=== PATIENT | female | born 1990 | race Hispanic/Latino ===

== ENCOUNTER 2017-06-06 04:50 | Inpatient (IN) | payer OTHER ==
[2017-06-06 05:33] VITALS: BMI 34.7
[2017-06-06] MEDS ORDERED: Penicillin G Potassium 5 MILL.UNITS VIAL ONE (05:55)
[2017-06-06] MEDS ORDERED: Sodium Chloride 0.9% 100 ML ONE (05:56)
[2017-06-06] MEDS ORDERED: Ondansetron HCl/PF 4 MG/2 ML Vial IVP PRN (05:59)
[2017-06-06] MEDS ORDERED: Promethazine HCl 25 MG/ML VIAL IM PRN (05:59)
[2017-06-06 06:02] LABS: Hematocrit 35.8 % (36.0-47.0); White Blood Cell (WBC) Count 10.8 thou/uL (4.8-10.8)
[2017-06-06] MEDS ORDERED: Penicillin G Potassium 5 MILL.UNITS in Sodium Chloride 0.9% 100 ML IVPB SCH (06:15)
[2017-06-06] MEDS: Lactated Ringer's 1,000 ML IV SCH ×2 (06:35→14:35)
[2017-06-06] MEDS: Penicillin G 2.5 MILL.units 2.5 MILL.UNITS in Premix Bag 1 BAG IVPB SCH ×3 (10:24→18:08)
--- NOTE | 2017-06-06 11:07 | PDOC.LDHP ---
Labor and Delivery H&P Chief complaint: contractions HPI: srom Current gestational age (weeks): 36 Due date: 06/30/17 Dating criteria: last menstrual period Grav: 4 Para: 1 Current complications: none Abnormal US findings: No Current medications: pre- vitamins Previous surgical history: other Allergies/Adverse Reactions: Allergies Allergy/AdvReac Type Severity Reaction Status Date / Time No Known Allergies Allergy Unverified 06/06/17 05:23 Social history: none - Physical Exam General: NAD Heart: RRR Lungs: CTAB Abdomen: NTTP Extremeties: trace edema FHT: category 1, category 2 - Vaginal Exam cm dilated: 4 Effacement: 50% Station: -2 - OB Labs Blood type: O RH: positive HIV: negative RPR: negative HEPSAg: negative 1 hour GCT: positive 3 hour GTT: negative GBS: unknown - Assessment L&D Assessment: premature rupture of membranes - Plan Plan: admit to L&D, labor augmentation if indicated, GBS antibiotic prophylaxis
[2017-06-06] MEDS ORDERED: LR 500 ML/Oxytocin 10 units 500 ML IV SCH (11:15)
[2017-06-06] MEDS ORDERED: Lidocaine 1% (PF) 30 ML VIAL ONE (15:12)
[2017-06-06] MEDS ORDERED: LR / Pitocin 40 units/1000 ml 1,000 ML ONE (15:12)
[2017-06-06] MEDS ORDERED: Bisacodyl 10 MG SUPP PR PRN (15:50)
[2017-06-06] MEDS ORDERED: diphenhydrAMINE HCl 25 MG CAP PO PRN (15:50)
[2017-06-06] MEDS ORDERED: Milk Of Magnesia 30 ML UDCUP PO PRN (15:50)
[2017-06-06] MEDS ORDERED: Preparation H Ointment 28 GM TUBE PR PRN (15:50)
[2017-06-06] MEDS ORDERED: Benzocaine/Menthol 20-0.5% 60 ML CAN TOP PRN (15:50)
[2017-06-06] MEDS ORDERED: Lanolin Ointment 7 GM TUBE TOP PRN (15:50)
[2017-06-06] MEDS ORDERED: Adacel (T-DAP) 0.5 ML VIAL IM ONE (15:50)
--- NOTE | 2017-06-06 15:52 | PDOC.OPDEL ---
OB Operative/Delivery Note Delivery Dr/Surgeon: Isaias Pre-Delivery Diagnosis: active labor Procedure/Post Delivery Dx: spontaneous vaginal delivery Weeks gestation: 36 Anesthesia: local - Findings A Sex: male Weight: 5 lb 6 oz - 5 min: 8 - 10 min: 9 - Additional Findings/Plan Placenta delivered: spontaneous Repaired Obstetrical Laceration: 1st degree Estimated blood loss: 250ml
[2017-06-06] MEDS ORDERED: LR / Pitocin 40 units/1000 ml 1,000 ML IV SCH (16:00)
[2017-06-06] MEDS: Ferrous Sulfate 325 MG TAB PO SCH (18:07)
[2017-06-06] MEDS: traMADol HCl 50 MG TAB PO PRN (18:25)
--- NOTE | 2017-06-07 08:23 | PDOC.PP ---
Post Progress Note Post Day #: 1 PO intake tolerated: yes Flatus: yes Ambulation: yes Vital Signs (12 hours) Temp Pulse Resp BP Pulse Ox 06/07/17 08:00 98.0 F 88 16 118/70 92 L 06/07/17 04:00 98.3 F 77 18 06/07/17 00:00 98.3 F 77 18 06/06/17 21:00 98.5 F 76 18 119/69 Weight Weight 184 lb - Physical Examination General: NAD Cardiovascular: no m/r/g, RRR Respiratory: clear to ausculation bilateral Abdominal: + bowel sounds, lochia, no distention, appropriately TTP Result Diagrams: 06/06/17 05:27 Additional Labs: Post Labs Hep Bs Antigen Non-Reactive S/CO (NonReactive) 06/06/17 05:27 - Assessment/Plan post day 0-1..doing well. d/c in AM
[2017-06-07] MEDS: Ferrous Sulfate 325 MG TAB PO SCH ×2 (08:44→16:55)
[2017-06-07] MEDS: Ibuprofen 800 MG TAB PO SCH ×4 (08:44→21:26)
[2017-06-07] MEDS: Docusate (Surfak) 240 MG CAP PO SCH ×3 (08:44→21:26)
[2017-06-07] MEDS: Prenatal Vitamin 1 TAB PO SCH (08:47)
[2017-06-07] MEDS: traMADol HCl 50 MG TAB PO PRN (10:56)
[2017-06-08] MEDS: Ibuprofen 800 MG TAB PO SCH ×2 (05:27→16:16)
--- NOTE | 2017-06-08 07:49 | PDOC.PP ---
Post Progress Note Post Day #: 2. PO intake tolerated: yes Flatus: yes Ambulation: yes Weight Weight 184 lb - Physical Examination General: NAD Cardiovascular: no m/r/g, RRR Respiratory: clear to ausculation bilateral Abdominal: + bowel sounds, lochia, no distention, appropriately TTP Result Diagrams: 06/06/17 05:27 Additional Labs: Post Labs Hep Bs Antigen Non-Reactive S/CO (NonReactive) 06/06/17 05:27 - Assessment/Plan post day 2 baby under bili lights. Plan to discharge mom for B&B 6 week post check up.
[2017-06-08 07:59] VITALS: BP 116/72; TEMP 98.9
[2017-06-08] MEDS: Docusate (Surfak) 240 MG CAP PO SCH (09:49)
[2017-06-08] MEDS: Prenatal Vitamin 1 TAB PO SCH (09:49)
[2017-06-08] MEDS: Ferrous Sulfate 325 MG TAB PO SCH ×2 (09:49→17:48)
== END 2017-06-08 18:25 | disposition home or self-care (01) | DRG 775 ==
LOC: L&D/OP 04:50 → L&D 05:14 → 3SW 17:58
PROVIDERS: ADMIT Obstetrics & Gynecology; ATTEND Obstetrics & Gynecology
PROC: 10E0XZZ Delivery of Products of Conception, External Approach (ICD-10-PCS; principal; 2017-06-06)
PROC: 0HQ9XZZ Repair Perineum Skin, External Approach (ICD-10-PCS; 2017-06-06)
DX: O42.913 Preterm premature rupture of membranes, unspecified as to length of time between rupture and onset of labor, third trimester (principal); O99.824 Streptococcus B carrier state complicating childbirth; O70.0 First degree perineal laceration during delivery; Z37.0 Single live birth; Z3A.36 36 weeks gestation of pregnancy
CPT/HCPCS: 85027; 87340; J0595; J2001; J2540; J7050; J7120

== ENCOUNTER 2018-02-07 20:09 | Emergency (ER) | payer OTHER, SELFPAY ==
[2018-02-07 20:35] LABS: #Basophils 0.1 thou/uL (0.0-0.2); #Eosinphils 0.2 thou/uL (0.0-0.7); #Lymphocytes 3.8 thou/uL (1.20-3.40); #Monocytes 0.5 thou/uL (0.11-0.59); #Neutrophils 4.7 thou/uL (1.40-6.50); %Basophils 0.8 % (0.0-1.0); %Eosinophils 1.6 % (0.0-10.0); %Lymphocytes 40.7 % (21.0-51.0); %Monocytes 5.5 % (0.0-10.0); %Neutrophils 51.3 % (42.0-75.0); Hemoglobin 14.5 g/dL (12.0-16.0); Mean Corpuscular HGB CONC 33.7 g/dL (32.0-36.0); Mean Corpuscular Hemoglobin 27.2 pg (27.0-31.0); Mean Corpuscular Volume 80.7 fl (81.0-99.0); Mean Platelet Volume 5.9 fL (7.4-10.4); Platelet Count 324 thou/uL (130-400); RBC Distribution Width 11.7 % (11.5-14.5); Red Blood Cell (RBC) Count 5.33 mill/uL (4.20-5.40); White Blood Cell (WBC) Count 9.3 thou/uL (4.8-10.8)
[2018-02-07 20:54] LABS: ALT (SGPT) 22 U/L (8-55); AST (SGOT) 21 U/L (5-34); Albumin 4.5 g/dL (3.5-5.0); Alkaline Phosphatase 79 U/L (40-150); Anion Gap 16 mmol/L (10-20); BUN (Urea Nitrogen) 12 mg/dL (7.0-18.7); Bilirubin, Total 0.2 mg/dL (0.2-1.2); CK (CPK) 88 U/L (29-168); Calc. Creatinine Clearance 0 mL/min (70-130); Calcium 10.5 mg/dL (7.8-10.44); Carbon Dioxide 20 mmol/L (22-29); Chloride 106 mmol/L (98-107); Estimated GFR-MDRD Greater than 90; Globulin 3.2 g/dL (2.4-3.5); Glucose 107 mg/dL (70-105); Potassium 3.5 mmol/L (3.5-5.1); Protein, Total 7.7 g/dL (6.0-8.3); Sodium 138 mmol/L (136-145)
[2018-02-07 21:02] LABS: CKMB 0.8 ng/mL (0-6.6); Troponin I Less than 0.010 ng/mL (< 0.028)
--- NOTE | 2018-02-07 21:13 | RAD ---
CHEST ONE VIEW: 02/07/18 HISTORY: Pain. COMPARISON: None. FINDINGS: Portable upright chest: Normal cardiac silhouette. Lungs and pleural spaces are clear. No pneumothorax or osseous abnormaliti es. IMPRESSION: No acute cardiopulmonary process. POS: [facility]
[2018-02-07] MEDS ORDERED: Lidocaine Viscous Sol 2% 15 ml UD Cup ONE (21:35)
[2018-02-07] MEDS ORDERED: Ondansetron ODT 4 MG TAB ONE (21:35)
[2018-02-07] MEDS ORDERED: Mag-Al 1200 mg/1200 mg/30 ML UDCUP ONE (21:35)
--- NOTE | 2018-02-25 16:33 | EKG ---
Test Reason : Blood Pressure : / mmHG Vent. Rate : 079 BPM Atrial Rate : 079 BPM P-R Int : 118 ms QRS Dur : 082 ms QT Int : 398 ms P-R-T Axes : 006 -14 024 degrees QTc Int : 456 ms Normal sinus rhythm Normal ECG Confirmed by KATHIE RAMIREZ M.D. ([id number]), general expeditor SARAH OSEI ([id number] on 02/25/2018 4:33:06 PM Referred By: Confirmed By:KATHIE RAMIREZ M.D.
== END 2018-02-07 23:12 | disposition home or self-care (01) ==
LOC: ERS 20:09
DX: K21.9 Gastro-esophageal reflux disease without esophagitis (principal)
CPT/HCPCS: 71045; 80053; 82550; 82553; 83690; 84484; 85025; 85379; 93005; Q0162

== ENCOUNTER 2018-08-31 19:32 | Emergency (ER) | payer SELFPAY ==
[2018-08-31 19:58] LABS: Bilirubin Negative (Negative); Blood, Urine Trace (Negative); Clarity CLOUDY (Clear); Glucose, Urine (Dipstick) Negative (Negative); Leukocyte Moderate (Negative); Nitrite Negative (Negative); Protein, Urine (Dipstick) Negative (Neg-Trace); Specific Gravity, Urine 1.025 (1.002-1.036)
[2018-08-31 19:59] LABS: Pregnancy Test - Urine (BHCG) Negative (Negative); Pregu Control Background? CLEAR/WHITE (CLR/WHITE); Pregu Control Bar Appear? YES (CONTROL BAR); Specific Gravity 1.025 (1.002-1.036)
[2018-08-31 20:01] LABS: Bacteria/HPF 1+ HPF (None Seen); Hyaline Casts/LPF 4-6 HYALINE CAST LPF (0-3 Hyaline); Pathc Cast-AUWi Flag 1.01 (0-2.49)
[2018-08-31 20:02] LABS: #Eosinphils 0.3 thou/uL (0.0-0.7); #Lymphocytes 2.2 thou/uL (1.20-3.40); #Monocytes 0.5 thou/uL (0.11-0.59); %Basophils 0.6 % (0.0-1.0); %Eosinophils 3.2 % (0.0-10.0); %Lymphocytes 27.3 % (21.0-51.0); %Monocytes 6.2 % (0.0-10.0); %Neutrophils 62.7 % (42.0-75.0); Hemoglobin 14.4 g/dL (12.0-16.0); Mean Corpuscular HGB CONC 34.5 g/dL (32.0-36.0); Mean Corpuscular Hemoglobin 28.3 pg (27.0-31.0); Mean Platelet Volume 6.3 fL (7.4-10.4); Platelet Count 328 thou/uL (130-400); RBC Distribution Width 11.5 % (11.5-14.5); Red Blood Cell (RBC) Count 5.08 mill/uL (4.20-5.40)
[2018-08-31 20:21] LABS: ALT (SGPT) 47 U/L (8-55); AST (SGOT) 33 U/L (5-34); Albumin 4.3 g/dL (3.5-5.0); Alkaline Phosphatase 80 U/L (40-150); Anion Gap 12 mmol/L (10-20); BUN (Urea Nitrogen) 11 mg/dL (7.0-18.7); Bilirubin, Total 0.3 mg/dL (0.2-1.2); Calc. Creatinine Clearance 0 mL/min (70-130); Calcium 9.4 mg/dL (7.8-10.44); Carbon Dioxide 22 mmol/L (22-29); Chloride 109 mmol/L (98-107); Estimated GFR-MDRD Greater than 90; Globulin 3.3 g/dL (2.4-3.5); Glucose 124 mg/dL (70-105); Potassium 3.7 mmol/L (3.5-5.1); Protein, Total 7.6 g/dL (6.0-8.3); Sodium 139 mmol/L (136-145)
[2018-08-31] MEDS ORDERED: cefTRIAXone\\ROCEPHIN 1 GM VIAL ONE (23:05)
[2018-08-31] MEDS ORDERED: Lidocaine 1% PF 5 ML VIAL ONE (23:05)
== END 2018-08-31 23:25 | disposition home or self-care (01) ==
LOC: ERS 19:32
DX: N39.0 Urinary tract infection, site not specified (principal)
CPT/HCPCS: 36415; 80053; 81003; 81015; 81025; 85025; 96372; J0696; J2001

== ENCOUNTER 2019-07-15 17:15 | Inpatient (IN) | payer SELFPAY ==
[2019-07-15 18:09] LABS: #Monocytes 0.7 thou/uL (0.11-0.59); %Basophils 0.1 % (0.0-1.0); %Eosinophils 0.1 % (0.0-10.0); %Lymphocytes 7.1 % (21.0-51.0); %Monocytes 4.9 % (0.0-10.0); %Neutrophils 87.8 % (42.0-75.0); Hemoglobin 14.1 g/dL (12.0-16.0); Mean Corpuscular HGB CONC 33.7 g/dL (32.0-36.0); Mean Platelet Volume 5.9 fL (7.4-10.4); Platelet Count 349 thou/uL (130-400); Red Blood Cell (RBC) Count 5.04 mill/uL (4.20-5.40); White Blood Cell (WBC) Count 13.7 thou/uL (4.8-10.8)
[2019-07-15 18:21] LABS: BHCG - Serum Negative (NEGATIVE); Pregs Control Background? CLEAR/WHITE (CLR/WHITE); Pregs Control Bar Appear? YES (CONTROL BAR)
[2019-07-15 18:31] LABS: ALT (SGPT) 336 U/L (8-55); AST (SGOT) 477 U/L (5-34); Albumin 4.5 g/dL (3.5-5.0); Alkaline Phosphatase 102 U/L (40-110); Anion Gap 13 mmol/L (10-20); BUN (Urea Nitrogen) 10 mg/dL (7.0-18.7); Bilirubin, Total 1.6 mg/dL (0.2-1.2); Calc. Creatinine Clearance 0 mL/min (70-130); Calcium 9.5 mg/dL (7.8-10.44); Carbon Dioxide 23 mmol/L (22-29); Chloride 106 mmol/L (98-107); Estimated GFR-MDRD Greater than 90; Globulin 3.1 g/dL (2.4-3.5); Glucose 142 mg/dL (70-105); Potassium 3.9 mmol/L (3.5-5.1); Protein, Total 7.6 g/dL (6.0-8.3); Sodium 138 mmol/L (136-145)
[2019-07-15 18:51] LABS: Bilirubin Negative (Negative); Blood, Urine Negative (Negative); Clarity Turbid (Clear); Glucose, Urine (Dipstick) Normal (Negative); Leukocyte 25 Leu/uL (Negative); Nitrite Negative (Negative); Protein, Urine (Dipstick) 30 mg/dL (Neg-Trace)
[2019-07-15 18:59] LABS: RBC/HPF None Seen HPF (0-3)
[2019-07-15 19:00] LABS: Bacteria/HPF 1+ HPF (None Seen)
[2019-07-15 19:16] LABS: CK (CPK) 87 U/L (29-168)
[2019-07-15] MEDS ORDERED: Morphine 4 MG/ML VIAL ONE (19:16)
[2019-07-15] MEDS ORDERED: Ondansetron PF 4 MG/2 ML Vial ONE (19:16)
[2019-07-15 19:32] LABS: Lipase 2262 U/L (8-78)
--- NOTE | 2019-07-15 20:59 | ULT ---
Exam: Right upper quadrant ultrasound: HISTORY: Upper abdominal pain with elevated lipase. COMPARISON: None FINDINGS: Liver: Increased echogenicity suggesting diffuse fatty infiltration. Gallbladder: Multiple shadowing echogenic foci are seen in gallbladder lumen compatible with gallblad ariella calculi. There is no gallbladder wall thickening or pericholecystic fluid seen. Common bile duct: The common duct is at the upper limits of normal normal in caliber measuring 6 mm in diameter. Pancreas: Limited visualized portions of the pancreas demonstrate a normal sonographic appearance. Right kidney: There is a small anechoic to hypoechoic structure seen within the upper pole right kidn ey measuring 1.6 cm which is difficult to definitively characterize but likely represents a small cyst. The right kidney measures 10.5 cm in length. IVC: The visualized IVC demonstrates a normal sonographic appearance. IMPRESSION: 1. Cholelithiasis with common duct at the upper limits of normal in diameter measuring 6 mm. Ultrason ographer does note a positive sonographic Field's sign, but no pericholecystic fluid or gallbladder wall thickening is present. 2. Fatty infiltration of the liver. 2. Probable small right renal cyst.
[2019-07-15] MEDS ORDERED: Morphine 4 MG/ML VIAL SLOW IVP PRN ×2 (21:45→21:57)
[2019-07-15] MEDS ORDERED: D5 1/2 NS w/20 mEq KCL 1,000 ML IV SCH (21:45)
[2019-07-15] MEDS ORDERED: Ondansetron PF 4 MG/2 ML Vial IVP PRN ×2 (21:46→21:57)
[2019-07-15] MEDS ORDERED: Ondansetron ODT 4 MG TAB SL PRN (21:46)
[2019-07-15] MEDS ORDERED: Ondansetron ODT 4 MG TAB PO PRN (21:57)
[2019-07-15] MEDS ORDERED: Acetaminophen 500 MG TAB PO PRN (21:57)
[2019-07-15] MEDS ORDERED: hydrALAZINE 20 MG/ML VIAL SLOW IVP PRN (21:57)
[2019-07-15 22:04] VITALS: BMI 28.6
[2019-07-15] MEDS: Sodium Chloride 0.9% 1,000 ML IV SCH (22:23)
--- NOTE | 2019-07-15 23:22 | HP ---
PRIMARY CARE PROVIDER: Adams Givens MD. CHIEF COMPLAINT: Abdominal pain with nausea and vomiting. HISTORY OF PRESENT ILLNESS: This is a 28-year-old female, who presented to [facility] Emergency Department, complaining of approximately 2-day history of increasing midepigastric abdominal pain with radiation to the lower back. The patient states she ate shrimp cocktail within the last 24 to 48 hours and thought this pain was related to gas in her abdomen. The patient took [id number] Tums and sips of water without relief of her symptoms. The patient had one episode of emesis with associated nausea and felt chills, fever, and sweaty. 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 The patient denied any family members with similar symptoms, recent travel history, or prior similar symptoms. The patient denied any recent trauma injury, new medication exposure, or cisn-[id number]-[id number] supplements. In the emergency room, the patient underwent general evaluation including metabolic screening showing evidence of transaminitis with acute pancreatitis. The patient underwent abdominal ultrasound showing evidence of cholelithiasis without cholecystitis. The patient was placed on intravenous normal saline x2 L and given Zofran and morphine sulfate. The patient was transferred to the medical floor for further evaluation. PAST MEDICAL HISTORY: Reviewed and negative. PAST SURGICAL HISTORY: Reviewed and negative. CURRENT MEDICATIONS: Reviewed and negative. ALLERGIES: NO KNOWN DRUG ALLERGIES. FAMILY HISTORY: No inheritable disease per the patient's report. SOCIAL HISTORY: The patient is , accompanied by her in the hospital. Two children at home. [id number]-[id number] mother. No tobacco or illicit drug use. Social alcohol use. REVIEW OF SYSTEMS: CONSTITUTIONAL: Negative for weight loss or gain, ability to conduct usual activities. SKIN: Negative for rash, itching. EYES: Negative for double vision, pain. ENT/MOUTH: Negative for nose bleeding, neck stiffness, pain, tenderness. CARDIOVASCULAR: Negative for palpitations, dyspnea on exertion, orthopnea. RESPIRATORY: Negative for shortness of breath, wheezing, cough, hemoptysis, fever or night sweats. GASTROINTESTINAL: Negative for poor appetite, abdominal pain, heartburn, nausea, vomiting, constipation, or diarrhea. GENITOURINARY: Negative for urgency, frequency, dysuria, nocturia. MUSCULOSKELETAL: Negative for pain, swelling. NEUROLOGIC/PSYCHIATRIC: Negative for anxiety, depression. ALLERGY/IMMUNOLOGIC: Negative for skin rash, bleeding tendency. Otherwise negative except as stated per HPI. PHYSICAL EXAMINATION: VITAL SIGNS: On admission, blood pressure 117/67, pulse 91, respiratory rate 19, temperature 98.6 degrees Fahrenheit, O2 saturations 100% on room air. GENERAL APPEARANCE: This is a 28-year-old female, alert and oriented x3, pleasant, smiling, in no acute distress. HEENT: Pupils are equal, round, reactive to light and accommodation. Extraocular muscles are intact. No scleral icterus. No conjunctival injection. Nares are patent. OP is clear. Teeth in good repair. NECK: Supple. No cervical adenopathy. No thyromegaly. No carotid bruits. No JVD appreciated. Cervical spine with full active and passive range of motion. No meningeal signs noted. CHEST: Lungs are clear to auscultation bilaterally. CARDIOVASCULAR: S1, S2 without noted murmur, rub, or gallop. ABDOMEN: Obese, soft with mild tenderness to palpation in the mid epigastric and right upper quadrant without guarding. Bowel sounds diminished in all 4 quadrants. No palpable mass. EXTREMITIES: Warm and dry with fair turgor. No clubbing, cyanosis, or asymmetric edema appreciated. Pulses palpable distally at the dorsalis pedis, posterior tibial, and popliteal arteries bilaterally. Capillary refill less than 2 seconds. NEUROLOGIC: Cranial nerves 2 through 12 are grossly intact. No focal or lateralizing signs appreciated. PERTINENT LABORATORY AND X-RAY FINDINGS: Basic metabolic profile within normal limits. Total bilirubin 1.6, AST 477, ALT 336, alkaline phosphatase 102, total CK of 87, lipase 2262. Serum beta-hCG negative. CBC showed a white blood cell count of 13.7, hemoglobin 14, hematocrit 42, platelet count 349 with 88% neutrophils. Urinalysis positive for protein and ketones with 4 to 6 wbc's per high-power field. Abdominal ultrasound dated 07/15/2019 showed cholelithiasis with common bile duct measuring 6 mm. No pericholecystic fluid or gallbladder wall thickening noted. Fatty infiltration of the liver noted. ASSESSMENT/PLAN: 1. Acute pancreatitis. Suspect secondary to choledocholithiasis versus cholelithiasis. We will continue symptomatic and supportive management. Continue intravenous normal saline at 125 mL/hour. Morphine sulfate 4 mg IV q.4 hours p.r.n. pain. Consult GI Service in the a.m. for any further recommendations. Repeat lipase in the a.m. Check fasting lipid profile. 2. Choledocholithiasis. See #1 above. Clinically, the patient likely passed a small stone. 3. Nausea and vomiting secondary to #1. Continue intravenous normal saline with additional Zofran 4 mg IV q.6 hours p.r.n. N.p.o. except medications and sips of water. 4. Transaminitis. Suspect secondary to #2. We will continue to monitor serial LFTs. Consult GI Service in the a.m. for any recommendations and consideration for ERCP. 5. Prophylaxis. SCDs while in bed. Pepcid 20 mg p.o. b.i.d. 6. Code status is full. Surrogate medical decision maker is the patient's spouse. Job ID: [id number]
[2019-07-16] MEDS: Sodium Chloride 0.9% 1,000 ML IV SCH ×5 (04:52→17:58)
[2019-07-16 06:09] LABS: ALT (SGPT) 441 U/L (8-55); AST (SGOT) 388 U/L (5-34); Albumin 3.6 g/dL (3.5-5.0); Alkaline Phosphatase 93 U/L (40-110); Anion Gap 7 mmol/L (10-20); BUN (Urea Nitrogen) 7 mg/dL (7.0-18.7); Bilirubin, Total 1.2 mg/dL (0.2-1.2); Calc. Creatinine Clearance 162 mL/min (70-130); Calcium 7.7 mg/dL (7.8-10.44); Carbon Dioxide 24 mmol/L (22-29); Cardiac Risk 3.6 (Less than 4.5); Chloride 110 mmol/L (98-107); Cholesterol 152 mg/dl (< 200 Desired); Estimated GFR-MDRD Greater than 90; Globulin 2.2 g/dL (2.4-3.5); Glucose 81 mg/dL (70-105); HDL Cholesterol 42 mg/dL (>60 Neg Risk); LDL Cholesterol, Calculated 94 mg/dL; Lipase 101 U/L (8-78); Potassium 3.3 mmol/L (3.5-5.1); Protein, Total 5.8 g/dL (6.0-8.3); Sodium 138 mmol/L (136-145); Triglycerides 78 mg/dL (Less than 150)
[2019-07-16 06:57] LABS: Band 7 % (5-11); Eosinophils 1 % (0-10); Hemoglobin 11.8 g/dL (12.0-16.0); Lymphocytes 25 % (21-51); MDiff Complete? YES; Mean Corpuscular HGB CONC 33.6 g/dL (32.0-36.0); Mean Corpuscular Hemoglobin 27.9 pg (27.0-31.0); Mean Corpuscular Volume 82.9 fL (78.0-98.0); Mean Platelet Volume 6.2 fL (7.4-10.4); Monocytes 10 % (0-10); Neutrophil 57 % (42-75); Platelet Count 273 thou/uL (130-400); Red Blood Cell (RBC) Count 4.23 mill/uL (4.20-5.40); White Blood Cell (WBC) Count 7.4 thou/uL (4.8-10.8)
[2019-07-16] MEDS ORDERED: Famotidine/PF 20 mg/2ml Vial SLOW IVP SCH (09:00)
[2019-07-16] MEDS ORDERED: Rocuronium Bromide 10 MG/ML (10ML VIAL) ONE (10:30)
[2019-07-16] MEDS ORDERED: PROPOFOL 200 MG/20 ML VIAL ONE (10:30)
[2019-07-16] MEDS ORDERED: Lidocaine 1% PF 5 ML VIAL ONE (10:30)
[2019-07-16] MEDS ORDERED: Glycopyrrolate 0.2 MG/ML 5 ML SYRINGE ONE (10:30)
[2019-07-16] MEDS ORDERED: Dexamethasone 20 MG/5 ML VIAL ONE (10:30)
[2019-07-16] MEDS ORDERED: PHENYLEPHRINE-NS 100 MCG/ML 10 ML SYRINGE ONE (10:30)
[2019-07-16] MEDS ORDERED: Ondansetron PF 4 MG/2 ML Vial ONE (10:30)
[2019-07-16] MEDS ORDERED: Ketorolac Tromethamine 30 MG/ML VIAL IVP SCH (11:00)
[2019-07-16] MEDS ORDERED: Acetaminophen 1,000 MG in Premix Bag 1 BAG IVPB SCH (11:00)
--- NOTE | 2019-07-16 11:13 | CON ---
DATE OF CONSULTATION: 07/16/2019 HISTORY OF PRESENT ILLNESS: Maureen Sullivan 28-year-old female presents with several month history of biliary colic. She in fact was seen in September with similar symptoms and sent home with diagnosis of gas. Imaging was not performed. On this occasion, she had an ultrasound revealing gallstones with 6 mm bile duct. Her lipase was slightly elevated at 2262, by this morning it was 101. Her bilirubin slightly elevated at 1.6, today it is 1.2. She felt somewhat better overnight, but is having return of the right upper quadrant pain. Again, the upper abdominal pain left upper quadrant has resolved. ALLERGIES: NONE. TOBACCO: None. ALCOHOL: None. MEDICATIONS: None. PAST SURGICAL OR MEDICAL HISTORY: Noncontributory. REVIEW OF SYSTEMS: Ten-point noncontributory. PHYSICAL EXAMINATION: VITAL SIGNS: 5 feet 4 inches, 167 pounds, 28 BMI, 98.2 degrees, 72, 99/64. HEAD, EARS, EYES, NOSE AND THROAT: Unremarkable. Sclerae nonicteric. LUNGS: Clear to auscultation. CARDIAC: Regular rate and rhythm without murmur or gallop. ABDOMEN: Soft. Mild tenderness in right upper quadrant. Mild guarding. EXTREMITIES: Unremarkable. LABORATORY DATA: As noted. ASSESSMENT AND PLAN: Biliary pancreatitis, improved. We would recommend laparoscopic video cholecystectomy and cholangiogram. She is at low risk for choledocholithiasis. We will check her cholangiogram. [facility] has ordered an MRCP, results are pending, but this would not affect my plans and we will not wait on those results. The patient was apprised of the risks of operation including infection, bleeding, reoperation, bile duct injury, and questions answered and consents will be obtained. Job ID: [id number]
--- NOTE | 2019-07-16 12:17 | MRI ---
MRI ABDOMEN WITHOUT CONTRAST: Date: 07/16/19 COMPARISON: Gallbladder ultrasound of 07/15/19. HISTORY: Cholelithiasis with enlargement of the common bile duct. TECHNIQUE: Multiplanar, multisequence MR images were obtained of the abdomen without contrast. FINDINGS: Multiple filling defects are seen in the gallbladder consistent with gallstones. There is enlargement of the common bile duct to 8 mm. In the distal aspect of the common bile duct, there appear to be sm all filling defects similar in size to the gallstones. This is best seen on the axial images and is n ot definitely appreciated on the coronal images. There are well circumscribed foci of high T2 signal in the right kidney measuring up to 1.3 cm in siz e which represents cysts. The liver, left kidney, adrenal glands, spleen, and pancreas are unremarkab le. No abdominal adenopathy is seen. No marrow signal abnormality is present. IMPRESSION: 1. Cholelithiasis. 2. Enlargement of the common bile duct with likely choledocholithiasis in the distal common bile jadiel t. POS: [facility]
[2019-07-16] MEDS ORDERED: Iothalamate Meglumine 60% 50 ML VIAL FS ONE ×2 (13:14→13:42)
[2019-07-16] MEDS ORDERED: Indomethacin 50 MG SUPP ONE (13:14)
[2019-07-16] MEDS ORDERED: Fentanyl 250 MCG/5 ML VIAL ONE (13:18)
[2019-07-16] MEDS ORDERED: Midazolam HCl 2 mg/2 ml Vial ONE (13:18)
[2019-07-16] MEDS ORDERED: Bupivacaine HCl 0.5%/Epinephrine 1:200,000/PF 30 ml Vial ONE (13:42)
--- NOTE | 2019-07-16 14:01 | PDOC.HOSPP ---
- Subjective Encounter Date: 07/16/19 Encounter Time: 08:00 Subjective: Pt seen for followup re: acute pancreatitis. Feels slightly better in terms of abdo pain. - Objective Vital Signs & Weight: Vital Signs (12 hours) Temp Pulse Resp BP BP Pulse Ox 07/16/19 12:00 98.1 F 69 18 121/82 98 07/16/19 10:30 98.2 F 72 16 99/64 100 07/16/19 08:28 98.1 F 72 16 105/66 100 07/16/19 04:00 98.2 F 71 20 113/64 97 Weight Weight 167 lb Result Diagrams: 07/16/19 05:00 07/16/19 05:00 Additional Labs: labs and MARs reviewed by ri Hospitalist ROS - Review of Systems Cardiovascular: denies: chest pain, palpitations, orthopnea, paroxysmal noc. dyspnea, edema, light headedness Gastrointestinal: reports: nausea, abdominal pain. denies: vomiting, diarrhea, constipation, melena, hematochezia - Medication Medications: Active Medications Generic Name Dose Route Start Last Admin Trade Name Freq PRN Reason Stop Dose Admin Famotidine 20 mg 07/16/19 09:00 07/16/19 08:09 Pepcid SLOW IVP 20 mg Q12HR MAGO Administration Sodium Chloride 1,000 mls @ 200 mls/hr 07/16/19 09:53 07/16/19 10:36 Normal Saline 0.9% IV Not Given .Q5H MAGO Levofloxacin 750 mg/ Device 150 mls @ 100 mls/hr 07/16/19 12:00 07/16/19 11: 34 IVPB 150 mls 1200 MAGO Administration Sodium Chloride 1,000 mls @ 125 mls/hr 07/16/19 11:00 07/16/19 11:34 Normal Saline 0.9% IV Not Given .Q8H MAGO - Exam General Appearance: NAD Eye: anicteric sclera ENT: moist mucosa Neck: supple, no thyromegaly Heart: RRR, no rubs Respiratory: CTAB Gastrointestinal: soft, normal bowel sounds, no guarding, no rigidity, tender to palpation Extremities: no clubbing Psychiatric: normal affect, normal behavior Hosp A/P (1) Acute pancreatitis Code(s): K85.90 - ACUTE PANCREATITIS WITHOUT NECROSIS OR INFECTION, UNSP Status: Acute (2) Cholelithiasis Code(s): K80.20 - CALCULUS OF GALLBLADDER W/O CHOLECYSTITIS W/O OBSTRUCTION Status: Acute (3) Abnormal LFTs Code(s): R94.5 - ABNORMAL RESULTS OF LIVER FUNCTION STUDIES Status: Acute - Plan out of bed/ambulate Pt clinically improving, likely to have lap cholecystectomy. Continue to monitor.
[2019-07-16] MEDS ORDERED: Indomethacin 50 MG SUPP PR SCH (14:15)
--- NOTE | 2019-07-16 14:56 | RAD ---
ERCP: 07/16/2019 COMPARISON: None HISTORY: Stone removal FINDINGS: 3 images from an ERCP provided. On the first image there are multiple filling defects withi n the common bile duct suggesting choledocholithiasis. The second image demonstrates contrast media within the gallbladder with a suggestion of numerous small gallstones. On the third image there are p robable residual filling defects within the CBD. IMPRESSION: Findings consistent with cholelithiasis and choledocholithiasis as described above.
[2019-07-16] MEDS ORDERED: traMADol HCl 50 MG TAB PO PRN (15:54)
[2019-07-16] MEDS ORDERED: Ibuprofen 200 MG TAB PO PRN (15:54)
[2019-07-16] MEDS ORDERED: Ondansetron ODT 4 MG TAB SL PRN (15:55)
[2019-07-16] MEDS ORDERED: Ondansetron ORAL SOLN. 4 MG/5 ML UDCUP PO PRN (15:55)
[2019-07-16] MEDS ORDERED: Ondansetron ODT 4 MG TAB PO PRN ×2 (15:55)
--- NOTE | 2019-07-16 16:01 | CON ---
DATE OF CONSULTATION: 07/16/2019 REASON FOR CONSULTATION: Possible choledocholithiasis, gallstone pancreatitis. CONSULTING PROVIDER: Dr. Esequiel Sierra. HISTORY OF PRESENT ILLNESS: The patient is a 28-year-old female with no significant past medical history, presenting with complaints of midepigastric abdominal pain. She states that over the last 2 years she had been having intermittent abdominal pain, located in the right upper quadrant/midepigastric region, characterized as an aching/stabbing type pain, would radiate to the right flank and midback. Occurs around 1-2 times per month and reaches a severity of 8/10. This pain has not exhibited any significant exacerbating factors, but has been better with induced vomiting and just time. In any case, she was in her usual state of health until yesterday when she experienced the recurrence of this abdominal pain, but was associated with increased severity as well as diaphoresis, shaking chills, shortness of breath, and difficulty with ambulation, which prompted her to seek healthcare assistance at [facility] ER. While in the ER, she was noted to have a significantly elevated lipase and LFTs, concerning for gallstone pancreatitis, and was ultimately admitted to the hospital for further management/evaluation. At the current time, she states that her abdominal pain has improved and is minimal when she is not moving. She currently denies any nausea, vomiting, hematemesis, melena, hematochezia, odynophagia, dysphagia, or weight loss. REVIEW OF SYSTEMS: A 10-category review of systems was obtained with all responses negative except for the pertinent positives as listed in HPI. PAST MEDICAL HISTORY: None. PAST SURGICAL HISTORY: None. FAMILY HISTORY: She states that her maternal grandfather was diagnosed with gastric cancer. SOCIAL HISTORY: Denies any tobacco or illicit drug use; however, had been drinking 1-2 beers daily in addition to 6 to 7 beers on the weekends up to about 1 month ago when she quit. OUTPATIENT MEDICATIONS: None. ALLERGIES: NO KNOWN DRUG ALLERGIES. PHYSICAL EXAMINATION: VITAL SIGNS: Temperature 98.2, pulse 72, blood pressure 99/64, respiratory rate 16, and saturating 100% on room air. GENERAL: The patient was lying in bed, in no acute distress. Alert and oriented x4. HEENT: Normocephalic and atraumatic. NECK: Supple. No JVD or scleral icterus noted. CARDIOVASCULAR: Regular rate and rhythm with no discernable murmurs, gallops, or rubs. RESPIRATORY: Clear to auscultation bilaterally with no discernable wheezes or rales. ABDOMEN: Normoactive bowel sounds. Soft, nondistended. Tenderness to palpation in the midepigastric, right upper quadrant, and periumbilical regions. EXTREMITIES: No cyanosis, clubbing, or edema. LABORATORY DATA: CBC with a white blood cell count of 7.4, hemoglobin 11.8, hematocrit 35.1, and platelets 273. Chemistry with a sodium of 138, potassium 3.3, chloride 110, CO2 of 24, BUN 7, creatinine 0.62, and glucose 81. AST 388, ALT 441, alkaline phosphatase 93, total bilirubin 1.2, lipase 2262, and albumin 3.6. HCG negative. IMAGING DATA: Right upper quadrant ultrasound obtained on 07/15/2019, showed increased echogenicity, consistent with hepatic steatosis. There were multiple shadowing foci within the gallbladder without wall thickening or pericholecystic fluid. The common bile duct measured 6 mm. However, MRCP obtained on 07/16/2019 showed multiple filling defects within the gallbladder, consistent with gallstones. There was mild enlargement of the common bile duct to 8 mm with what appeared to be small filling defects similar to the size of the gallstones in the gallbladder and the distal aspect of the common bile duct, consistent with choledocholithiasis. ASSESSMENT AND PLAN: The patient is a 28-year-old female with no significant past medical history, presenting with choledocholithiasis. Choledocholithiasis: The patient has been having intermittent right upper quadrant abdominal pain that has been present for the last 2 years since the of her last child. This pain is characterized as an aching/stabbing type sensation, occurs around 1-2 times a month, but has not followed a consistent biliary pattern with no evidence of a crescendo/decrescendo pattern. Upon evaluation her LFTs, she does have a significant transaminitis, but current labs do not necessarily reflect an obstructive process. However, with her ALT being greater than the 3 times the upper limit of normal and with gallstones in her gallbladder, the concern for gallstone pancreatitis is high, especially with MRCP findings consistent with choledocholithiasis. RECOMMENDATIONS: 1. We would continue n.p.o. status in preparation for ERCP and subsequently laparoscopic cholecystectomy later today. 2. We will plan for ERCP later today for stone extraction. 3. Antibiotics per primary team. 4. Pain control per primary team. 5. With the aspect of pancreatitis, we would continue IV fluids at 200 mL for hour over the next 8 hours, then decrease to 150 per hour. 6. Further recommendations to follow ERCP. We will continue to follow. Please call with any questions. Job ID: [id number]
[2019-07-16] MEDS ORDERED: Fentanyl 100 MCG/2 ML VIAL ONE (16:24)
[2019-07-16] MEDS ORDERED: Acetaminophen 1,000 MG in Premix Bag 1 BAG IVPB PRN (18:00)
[2019-07-16] MEDS ORDERED: Ketorolac Tromethamine 30 MG/ML VIAL IVP PRN (18:00)
--- NOTE | 2019-07-16 18:33 | OP ---
DATE OF PROCEDURE: 07/16/2019 PROCEDURES PERFORMED: Endoscopic retrograde cholangiopancreatography with sphincterotomy and removal of biliary calculi. INDICATIONS FOR PROCEDURE: Choledocholithiasis, elevated gallstone pancreatitis. DESCRIPTION OF PROCEDURE: After the risks and benefits of the procedure were explained to the patient including risks of bleeding, infection, perforation, reactions to anesthesia aspiration, post ERCP pancreatitis, and/or pain, informed consent was obtained. The patient was then taken to the endoscopy suite, where general anesthesia was administered with endotracheal tube intubation. Once the patient was adequately sedated and intubated, she was then maneuvered into the prone position on the endoscopy table in anticipation of the ERCP. Once in adequate position, the standard colonoscope was introduced into the mouth with intubation of the esophagus, stomach, and the proximal small intestines with the findings listed below. Upon conclusion of EGD of the examination, the ampulla was successfully identified within the second portion of the duodenum. Using a 5 mm sphincterotome, the ampulla was then successfully cannulated with placement of a guidewire into the intrahepatic biliary tree. Once the guidewire was in adequate position the sphincterotome was advanced with a cholangiogram performed showing the presence of filling defects within the distal common bile duct consistent with choledocholithiasis. A generous sphincterotomy was then performed with adequate hemostasis achieved during the maneuver. Upon completion of this portion, the sphincterotome was then exchanged over guidewire for a 9 to 12 mm biliary balloon using exchange technique. Once the balloon was in adequate position, the balloon was advanced into the common bile duct and with successive balloon sweeps, multiple stones and stone fragments were retrieved. Occlusion cholangiogram at the end of the procedure showed clearing of the common bile and common hepatic duct with good filling of the cystic duct and the gallbladder itself. Good drainage of bile was also noted at the end of procedure with drainage of contrast seen on fluoroscopy, at which point, all equipment was removed from the patient. The patient was transferred to the OR for the second portion of these procedures including laparoscopic cholecystectomy. FINDINGS: EGD findings: Limited views were obtained of the esophagus, stomach, and the proximal small intestines during the EGD portion of this examination; however, normal-appearing mucosa was seen within the esophagus, stomach, and the proximal small intestines with no evidence of erosions, ulcerations, mass, lesions, or active/recent bleeding. ERCP findings: Once the duodenoscope was advanced to the second portion of the duodenum, the ampulla was easily identified within this region. Using a 5 mm Ultratome/sphincterotome, the ampulla was then successfully cannulated with a guidewire placed into the intrahepatic biliary tree. A cholangiogram was then performed showing multiple filling defects within the distal common bile duct consistent with choledocholithiasis. A generous sphincterotomy was then performed in anticipation of balloon sweeps. The sphincterotome was then exchanged for a 9 to 12 biliary balloon, which was then successfully advanced into the common bile duct. Multiple balloon sweeps were then performed, obtaining two 4 to 5 mm yellow pigmented stones along with multiple stone fragments/debris as well as biliary sludge and microlithiasis in the form of yellow pigmented mush. The successive balloon sweeps after obtaining all this material were clean with no additional material extruded from the ampulla itself. A final occlusion cholangiogram was performed with no additional filling defects and good filling of the cystic duct, which noted multiple gallstones within the gallbladder itself upon removal of the balloon under fluoroscopy, good drainage of the biliary tree was then seen. The procedure was then terminated with removal of all equipment from the patient. IMPRESSION: 1. Choledocholithiasis status post sphincterotomy and successful extraction of biliary calculi/stone debris. 2. Cholelithiasis. RECOMMENDATIONS: 1. Would monitor the patient's LFTs in addition to monitoring the patient for possible post ERCP pancreatitis. 2. The patient will undergo a laparoscopic cholecystectomy today for more definitive treatment of cholelithiasis. 3. Pain control per primary team. 4. Would continue IV fluids at 200 mL/h until 1800 tonight, then decrease to 115 mL/h for treatment of pancreatitis. 5. Antibiotics per primary team. Would continue broad-spectrum antibiotics including Levaquin given the possibility of cholangitis and post laparoscopic cholecystectomy. We will continue to follow. Please call with any questions. Job ID: [id number]
--- NOTE | 2019-07-16 19:48 | OP ---
DATE OF PROCEDURE: 07/16/2019 PREOPERATIVE DIAGNOSES: Biliary pancreatitis, cholelithiasis. POSTOPERATIVE DIAGNOSES: Chronic cholecystitis, cholelithiasis, choledocholithiasis. PROCEDURE PERFORMED: Dr. Ordoñez performed endoscopic retrograde cholangiopancreatography, stone extraction, sphincterotomy prior to Dr. Foley performing laparoscopic video cholecystectomy. ANESTHESIA: General, local 0.5% Marcaine with epinephrine 30 mL. DESCRIPTION OF PROCEDURE: The patient was taken to the operating room, where under general anesthesia, abdomen was prepared with ChloraPrep and draped in routine fashion. Local anesthetic was infiltrated into the skin and subcutaneous tissue about each port site. Infraumbilical incision made, pneumoperitoneum to 15 mmHg obtained with a Veress needle, replaced with a 5 port, video laparoscope inserted. Right subxiphoid incision was made and 11 port placed, right subcostal incision was made at midclavicular and anterior axillary line, 5 ports placed. Liver appeared to be normal. Gallbladder fundus grasped at the cephalad. Infundibulum was grasped and reflected laterally, cystic artery and duct dissected free. Cystic artery and duct double clipped proximally, divided and after critical view, gallbladder dissected free from liver bed obtaining good hemostasis prior to division of the final peritoneal attachments. Gallbladder and contents removed, submitted to Pathology. Good hemostasis ensured with the cautery. Irrigant and pneumoperitoneum evacuated. All instruments were removed and all skin incisions were approximated with interrupted subdermal 4-0 Monocryl and Quitaque glue applied. Job ID: [id number]
[2019-07-16] MEDS: traMADol HCl 50 MG TAB PO PRN (20:34)
[2019-07-16] MEDS ORDERED: Morphine 4 MG/ML VIAL SLOW IVP PRN ×2 (23:49→23:50)
[2019-07-16] MEDS ORDERED: Morphine 4 MG/ML VIAL SLOW IVP SCH (23:59)
[2019-07-17] MEDS: Sodium Chloride 0.9% 1,000 ML IV SCH ×2 (04:14→08:26)
[2019-07-17 05:52] LABS: #Lymphocytes 1.4 thou/uL (1.20-3.40); #Monocytes 1.1 thou/uL (0.11-0.59); #Neutrophils 13.3 thou/uL (1.40-6.50); %Eosinophils 0.1 % (0.0-10.0); %Lymphocytes 8.7 % (21.0-51.0); %Monocytes 7.1 % (0.0-10.0); %Neutrophils 84.1 % (42.0-75.0); Hemoglobin 12.4 g/dL (12.0-16.0); Mean Corpuscular HGB CONC 33.9 g/dL (32.0-36.0); Mean Corpuscular Hemoglobin 28.2 pg (27.0-31.0); Mean Corpuscular Volume 83.1 fL (78.0-98.0); Platelet Count 289 thou/uL (130-400); RBC Distribution Width 10.9 % (11.5-14.5); Red Blood Cell (RBC) Count 4.41 mill/uL (4.20-5.40); White Blood Cell (WBC) Count 15.9 thou/uL (4.8-10.8)
[2019-07-17 06:23] LABS: ALT (SGPT) 385 U/L (8-55); AST (SGOT) 180 U/L (5-34); Albumin 3.8 g/dL (3.5-5.0); Alkaline Phosphatase 103 U/L (40-110); Anion Gap 8 mmol/L (10-20); BUN (Urea Nitrogen) 5 mg/dL (7.0-18.7); Bilirubin, Total 0.7 mg/dL (0.2-1.2); Calc. Creatinine Clearance 159 mL/min (70-130); Calcium 8.5 mg/dL (7.8-10.44); Carbon Dioxide 24 mmol/L (22-29); Chloride 109 mmol/L (98-107); Estimated GFR-MDRD Greater than 90; Globulin 2.6 g/dL (2.4-3.5); Glucose 110 mg/dL (70-105); Lipase 140 U/L (8-78); Potassium 3.7 mmol/L (3.5-5.1); Protein, Total 6.4 g/dL (6.0-8.3); Sodium 137 mmol/L (136-145)
--- NOTE | 2019-07-17 07:30 | PDOC.GSPN ---
Surgery Progress Note: Subj - Subjective Narrative: Maureen Sullivan is a 28 yo F POD1 ERCP & laparoscopic cholescystectomy. She complains of ongoing pain in her RUQ. Pain kept her up several hours last night. Currently it is at a 6/10, after a dose of Morphine at 4am, but it is increasing again. She states the pain spreads to her back and her right shoulder as well. She reports the pain is almost the same she was having before admission. She was able to tolerate soup last night. She attempted to ambulate yesterday, but said it was quite a struggle with the pain. She also comments that it is painful to take in deep breaths, so she has been breathing more shallow at times. She denies chest pain, nausea, vomiting, SOB. Surgery Progress Note: Obj - Vital signs Vital signs: Vital Signs - Most Recent Temp Pulse Resp BP Pulse Ox 97.7 F 74 16 104/68 97 07/17/19 04:00 07/17/19 04:00 07/17/19 04:00 07/17/19 04:00 07/17/19 04:00 - Physical Exam General: moderate pain Cardiovascular: regular rate and rhythm Respiratory: clear to auscultation Abdomen: decreased bowel sounds, appropriately tender (increased pain on palpation of RUQ, no gaurding or rigidity) Wound: healing well (each incision is dry, clean, & intact) Surgery Progress Note: Results - Labs Result Diagrams: 07/17/19 05:21 07/17/19 05:21 Lab results: Laboratory Results - last 24 hr AST 180 ALT 385 Lipase 140 Total bilirubin 0.7 Alk phos 103 Labs trending down Surgery Progress Note: A/P - Problem (1) S/P laparoscopic cholecystectomy Current Visit: Yes Code(s): Z90.49 - ACQUIRED ABSENCE OF OTHER SPECIFIED PARTS OF DIGESTIVE TRACT Status: Acute - Plan Plan: Patient having significant pain. Continue to monitor pain control. Advance diet as tolerated. Activity as tolerated. Encourage ICS use due to shallow breathing.
[2019-07-17] MEDS: traMADol HCl 50 MG TAB PO PRN (08:34)
[2019-07-17 11:31] VITALS: TEMP 98.4
--- NOTE | 2019-07-17 11:43 | PRG ---
DATE OF SERVICE: 07/17/2019 SUBJECTIVE: Ms. Sullivan is doing well. She has right upper quadrant pain under surgical site. Her upper abdominal pain, left upper quadrant, and back has resolved. Her lipase is normal. She tolerated regular diet this morning. OBJECTIVE: VITAL SIGNS: Temperature 97.7, pulse 74, blood pressure 104/68. LUNGS: Clear to auscultation. CARDIAC: Regular rate and rhythm without murmur or gallops. ABDOMEN: Soft, nontender except right upper quadrant surgical site. Surgical wounds look good. EXTREMITIES: Unremarkable. LABORATORY DATA: This morning, her white count is 15, hemoglobin is 12. Basic metabolic profile is normal. Bilirubin is normal. Alkaline phosphatase is normal. ASSESSMENT AND PLAN: Doing well post endoscopic retrograde cholangiopancreatography, sphincterotomy, stone extraction, and cholecystectomy. Would discharge home. Diet and activity, as tolerated. No lifting restrictions. Tylenol and Motrin [id number] for pain. Ultram if needed for pain breakthrough. Can take all 3 together. Follow up in my office in 2 to 3 weeks. Job ID: [id number]
--- NOTE | 2019-07-17 12:03 | DIS ---
DATE OF ADMISSION: 07/15/2019 DATE OF DISCHARGE: 07/17/2019 DISCHARGE DIAGNOSES: Biliary pancreatitis, choledocholithiasis, and chronic cholecystitis history. PROCEDURES IN THIS HOSPITALIZATION: Ultrasound; gallstones, revealing 6 mm bile duct. MRCP, choledocholithiasis. HOSPITAL COURSE: Consultation with Dr. Hester. Consultation with Dr. Foley. ERCP, sphincterotomy, and stone extraction. Under the same general anesthetic, laparoscopic cholecystectomy. Postoperatively, bilirubin, alkaline phosphatase, and lipase are normal. She tolerated diet. She was discharged home with followup in my office, Dr. Foley in 2 to 3 weeks. DIET AND ACTIVITY: As tolerated. No lifting restrictions. DISCHARGE MEDICATIONS: 1. Tylenol and Ultram p.r.n. pain. 2. Motrin [id number] p.r.n. pain. Shower and bathe whenever. HISTORY: A 28-year-old female, 2, para 2 with minimal history of biliary colic, presented to the emergency room several months ago without imaging, though she had gas, continued with symptoms, presented now with the above findings, underwent the above hospital course and discharged home. Job ID: [id number]
[2019-07-17 13:08] VITALS: BP 95/70
--- NOTE | 2019-07-17 16:53 | DIS ---
DATE OF ADMISSION: 07/15/2019 DATE OF DISCHARGE: 07/17/2019 PRIMARY CARE PROVIDER: Dr. Adams Givens. DISCHARGE DIAGNOSES: 1. Acute pancreatitis. 2. Cholelithiasis. 3. Choledocholithiasis. 4. Chronic cholecystitis. CONDITION OF PATIENT ON THE DAY OF DISCHARGE: Stable. I assessed Ms. Sullivan on the day of discharge. She denies any chest pain or shortness of breath. Vital signs are stable. S1 and S2 are heard, regular. Lungs are clear to auscultation bilaterally. CONSULTATIONS DURING THIS HOSPITALIZATION: General Surgery, Dr. Foley and Gastroenterology, Dr. Hester. HOSPITAL COURSE: Ms. Sullivan is a pleasant 28-year-old lady, who was admitted to [facility] on July 15, 2019 for acute biliary pancreatitis. She was seen by Gastroenterology and General Surgery Services. She underwent MRCP on July 16, which showed cholelithiasis and enlargement of the common bile duct with likely choledocholithiasis in the distal common bile duct. She underwent ERCP, sphincterotomy and stone extraction as well as laparoscopic cholecystectomy. Her LFT started normalizing. She was discharged home by General Surgery Service. Post-discharge followup: With primary care provider and with the General Surgery Service. Many thanks for allowing me to participate in your patient's care. Please feel free to contact me with any questions or concerns. DISCHARGE DESTINATION: Home. TIME SPENT: Total amount of time spent coordinating this discharge: 15 minutes. Job ID: [id number]
== END 2019-07-17 14:08 | disposition home or self-care (01) | DRG 418 ==
LOC: ERS 17:15 → T4-A 19:45
PROVIDERS: ADMIT Internal Medicine; ATTEND Internal Medicine
PROC: 0FC98ZZ Extirpation of Matter from Common Bile Duct, Via Natural or Artificial Opening Endoscopic (ICD-10-PCS; principal; 2019-07-16)
PROC: 0FT44ZZ Resection of Gallbladder, Percutaneous Endoscopic Approach (ICD-10-PCS; 2019-07-16)
PROC: 0DJ08ZZ Inspection of Upper Intestinal Tract, Via Natural or Artificial Opening Endoscopic (ICD-10-PCS; 2019-07-16)
DX: K85.10 Biliary acute pancreatitis without necrosis or infection (principal); K80.64 Calculus of gallbladder and bile duct with chronic cholecystitis without obstruction; Z80.0 Family history of malignant neoplasm of digestive organs
CPT/HCPCS: 36415; 74181; 74330; 76705; 80053; 80061; 81003; 81015; 82550; 83690; 84703; 85007; 85025; 85027; 87086; 88304; 96361; 96374; 96375; J0131; J0670; J1100; J1610; J1885; J1956; J2001; J2250; J2270; J2405; J2704; J3010; S0028

== ENCOUNTER 2019-07-18 08:16 | Emergency (ER) | payer SELFPAY ==
--- NOTE | 2019-07-18 08:37 | RAD ---
XR Chest Pa Lat STANDARD HISTORY: Shortness of breath COMPARISON: None FINDINGS: The heart size is normal. The lungs are well expanded without focal areas of consolidation, pneumothorax or large pleural effusions. Blunting of the left lateral costophrenic angle may represent a small pleural effusion.
[2019-07-18 08:59] LABS: #Lymphocytes 2.3 thou/uL (1.20-3.40); #Neutrophils 8.9 thou/uL (1.40-6.50); %Basophils 0.3 % (0.0-1.0); %Eosinophils 0.4 % (0.0-10.0); %Lymphocytes 18.5 % (21.0-51.0); %Neutrophils 72.9 % (42.0-75.0); Mean Corpuscular HGB CONC 32.8 g/dL (32.0-36.0); Mean Corpuscular Hemoglobin 27.7 pg (27.0-31.0); Mean Corpuscular Volume 84.5 fL (78.0-98.0); Mean Platelet Volume 6.1 fL (7.4-10.4); Platelet Count 311 thou/uL (130-400); RBC Distribution Width 11.3 % (11.5-14.5); White Blood Cell (WBC) Count 12.2 thou/uL (4.8-10.8)
[2019-07-18] MEDS ORDERED: Ondansetron PF 4 MG/2 ML Vial ONE (09:17)
[2019-07-18] MEDS ORDERED: Morphine 4 MG/ML VIAL ONE (09:17)
[2019-07-18 09:23] LABS: ALT (SGPT) 276 U/L (8-55); AST (SGOT) 82 U/L (5-34); Albumin 4.1 g/dL (3.5-5.0); Alkaline Phosphatase 103 U/L (40-110); Anion Gap 11 mmol/L (10-20); BUN (Urea Nitrogen) 8 mg/dL (7.0-18.7); Bilirubin, Total 0.8 mg/dL (0.2-1.2); Calc. Creatinine Clearance 0 mL/min (70-130); Carbon Dioxide 25 mmol/L (22-29); Chloride 103 mmol/L (98-107); Estimated GFR-MDRD Greater than 90; Globulin 2.9 g/dL (2.4-3.5); Glucose 81 mg/dL (70-105); Lipase 17 U/L (8-78); Potassium 3.4 mmol/L (3.5-5.1); Sodium 136 mmol/L (136-145)
[2019-07-18 09:45] LABS: BHCG - Serum Negative (NEGATIVE); Pregs Control Background? CLEAR/WHITE (CLR/WHITE); Pregs Control Bar Appear? YES (CONTROL BAR)
--- NOTE | 2019-07-18 10:06 | CT ---
CTA Angio Chest W WO Con 07/18/2019 8:56 AM Indication: Right-sided chest pain and shortness of breath; recent history of cholecystectomy and pa ncreatitis Technique: Multiple CTA images were obtained of the thorax with IV contrast. 3-D rendering: MIP derek nstructed images were created and reviewed. Comparison: No relevant prior studies available. Findings: Pulmonary arteries: No central or segmental pulmonary embolus is evident. Heart and Aorta: Normal appearing. Mediastinum:Normal appearing. No enlarged lymph nodes. Lungs:There is bibasilar atelectasis. Pleural space: Small bilateral pleural effusions, right greater than left. Upper Abdomen: Fatty liver Osseous Structures: No acute osseous abnormality. Soft tissues:No abnormality. Other findings:None. Impression: No central or segmental pulmonary embolus. Small bilateral pleural effusions, right greater than left. Bibasilar subsegmental atelectasis. Fatty liver
[2019-07-18 10:30] LABS: Bacteria/HPF None Seen HPF (None Seen); Bilirubin Negative (Negative); Blood, Urine Trace (Negative); Clarity Clear (Clear); Glucose, Urine (Dipstick) Normal (Negative); Leukocyte Negative Leu/uL (Negative); Nitrite Negative (Negative); Protein, Urine (Dipstick) Negative (Neg-Trace); Urobilinogen Normal mg/dL (Less than 2)
[2019-07-18] MEDS ORDERED: Iopamidol-370 76% 500 ML 1 ML ONE (13:49)
== END 2019-07-18 11:30 | disposition home or self-care (01) ==
LOC: ERS 08:16
DX: R06.00 Dyspnea, unspecified (principal); Z79.891 Long term (current) use of opiate analgesic
CPT/HCPCS: 36415; 71046; 71275; 80053; 81003; 81015; 83690; 83880; 84484; 84703; 85025; 85379; 93005; J2270; J2405; Q9967

== ENCOUNTER 2019-08-10 08:13 | Emergency (ER) | payer SELFPAY | END 2019-08-10 09:36 | disposition home or self-care (01) | LOC: ERS 08:13 | DX: B34.9 Viral infection, unspecified (principal) | CPT/HCPCS: 87804; 99283 ==

== ENCOUNTER 2019-08-20 15:22 | Emergency (ER) | payer SELFPAY ==
[~2019-08-20 15:22] MED LIST: Iopamidol-370 76% 500 ML 1 ML ONE
[2019-08-20 16:03] LABS: #Eosinphils 0.1 thou/uL (0.0-0.7); #Lymphocytes 2.3 thou/uL (1.20-3.40); #Monocytes 0.5 thou/uL (0.11-0.59); #Neutrophils 3.6 thou/uL (1.40-6.50); %Basophils 0.6 % (0.0-1.0); %Monocytes 7.3 % (0.0-10.0); %Neutrophils 56.2 % (42.0-75.0); Hemoglobin 13.8 g/dL (12.0-16.0); Mean Corpuscular HGB CONC 33.7 g/dL (32.0-36.0); Mean Corpuscular Hemoglobin 27.6 pg (27.0-31.0); Mean Platelet Volume 6.2 fL (7.4-10.4); Platelet Count 358 thou/uL (130-400); RBC Distribution Width 11.2 % (11.5-14.5); White Blood Cell (WBC) Count 6.5 thou/uL (4.8-10.8)
[2019-08-20 16:16] LABS: Bacteria/HPF None Seen HPF (None Seen); Bilirubin Negative (Negative); Blood, Urine Negative (Negative); Clarity Clear (Clear); Glucose, Urine (Dipstick) Normal (Negative); Leukocyte 25 Leu/uL (Negative); Mucous/LPF 1+ LPF (<2+); Nitrite Negative (Negative); Protein, Urine (Dipstick) Negative (Neg-Trace); RBC/HPF 0-3 HPF (0-3); Urobilinogen Normal mg/dL (Less than 2)
[2019-08-20 16:20] LABS: Pregnancy Test - Urine (BHCG) Negative (Negative); Pregu Control Background? CLEAR/WHITE (CLR/WHITE); Pregu Control Bar Appear? YES (CONTROL BAR); Specific Gravity 1.029 (1.002-1.036)
[2019-08-20 16:26] LABS: ALT (SGPT) 105 U/L (8-55); AST (SGOT) 49 U/L (5-34); Albumin 4.3 g/dL (3.5-5.0); Alkaline Phosphatase 94 U/L (40-110); Anion Gap 13 mmol/L (10-20); BUN (Urea Nitrogen) 12 mg/dL (7.0-18.7); Bilirubin, Total 0.3 mg/dL (0.2-1.2); Calc. Creatinine Clearance 0 mL/min (70-130); Calcium 9.6 mg/dL (7.8-10.44); Carbon Dioxide 25 mmol/L (22-29); Chloride 105 mmol/L (98-107); Estimated GFR-MDRD Greater than 90; Globulin 3.4 g/dL (2.4-3.5); Glucose 87 mg/dL (70-105); Lipase 19 U/L (8-78); Potassium 4.2 mmol/L (3.5-5.1); Protein, Total 7.7 g/dL (6.0-8.3); Sodium 139 mmol/L (136-145)
[2019-08-20] MEDS ORDERED: Ondansetron PF 4 MG/2 ML Vial ONE (19:41)
[2019-08-20] MEDS ORDERED: Morphine 4 MG/ML VIAL ONE (19:41)
--- NOTE | 2019-08-20 20:47 | CT ---
CT abdomen and pelvis with IV contrast. Oral contrast was not administered. INDICATIONS: Abdominal pain COMPARISON: None FINDINGS: Lung bases are clear Liver, spleen, and pancreas appear unremarkable. Evidence of hepatic steatosis. Postcholecystectomy c hange. Stomach and duodenum appear unremarkable. Adrenal glands appear normal. Collecting structures and urinary bladder appear unremarkable. 1.6 cm cyst superior pole right kidney . 1.2 cm cyst inferior pole right kidney. Subcentimeter cyst mid pole right kidney. Incomplete rotation left kidney. Small bowel loops are normal caliber and exhibit normal fold pattern. Appendix is identified and appears unremarkable. Colon is unremarkable. Aorta is normal caliber. No evidence of retroperitoneal or mesenteric adenopathy. Uterus and adnexa unremarkable. Subcutaneous tissues, abdominal wall, and muscular structures appear unremarkable. Osseous structures appear unremarkable. IMPRESSION: No acute findings
[2019-08-21 20:51] LABS: Chlamydia by PCR Not Detected (NotDetected); GC by PCR Not Detected (NotDetected)
== END 2019-08-20 22:15 | disposition home or self-care (01) ==
LOC: ERS 15:22
DX: N89.8 Other specified noninflammatory disorders of vagina (principal)
CPT/HCPCS: 36415; 74177; 80053; 81003; 81015; 81025; 83690; 85025; 87480; 87491; 87510; 87591; 87660; 96365; 96366; 96375; J2270; J2405; Q9967

== ENCOUNTER 2020-06-27 15:24 | Emergency (ER) | payer SELFPAY ==
[2020-06-27 16:02] LABS: Bacteria/HPF None Seen HPF (None Seen); Bilirubin Negative (Negative); Blood, Urine Negative (Negative); Clarity Clear (Clear); Glucose, Urine (Dipstick) Normal (Negative); Ketone, Urine Negative (Negative); Leukocyte 25 Leu/uL (Negative); Nitrite Negative (Negative); Protein, Urine (Dipstick) Negative (Neg-Trace); RBC/HPF 0-3 HPF (0-3); Specific Gravity, Urine 1.024 (1.002-1.036); Squamous Epithelial 0-3 HPF (0-3); Urobilinogen Normal mg/dL (Less than 2); WBC/HPF 0-3 HPF (0-3); pH, Urine 5.5 (5.0-9.0)
[2020-06-27 16:04] LABS: Pregnancy Test - Urine (BHCG) Negative (Negative); Pregu Control Background? CLEAR/WHITE (CLR/WHITE); Pregu Control Bar Appear? YES (CONTROL BAR); Specific Gravity 1.024 (1.002-1.036)
[2020-06-27 16:18] LABS: #Eosinphils 0.1 thou/uL (0.0-0.7); #Monocytes 0.5 thou/uL (0.11-0.59); #Neutrophils 4.3 thou/uL (1.40-6.50); %Basophils 0.3 % (0.0-1.0); %Eosinophils 0.8 % (0.0-10.0); %Lymphocytes 28.9 % (21.0-51.0); %Monocytes 7.4 % (0.0-10.0); %Neutrophils 62.6 % (42.0-75.0); Hemoglobin 14.1 g/dL (12.0-16.0); Mean Corpuscular HGB CONC 34.7 g/dL (32.0-36.0); Mean Corpuscular Hemoglobin 28.9 pg (27.0-31.0); Mean Corpuscular Volume 83.3 fL (78.0-98.0); Mean Platelet Volume 6.4 fL (7.4-10.4); Platelet Count 318 thou/uL (130-400); RBC Distribution Width 11.3 % (11.5-14.5); Red Blood Cell (RBC) Count 4.88 mill/uL (4.20-5.40); White Blood Cell (WBC) Count 6.8 thou/uL (4.8-10.8)
[2020-06-27] MEDS ORDERED: Ondansetron ODT 4 MG TAB ONE (16:30)
[2020-06-27 16:47] LABS: ALT (SGPT) 82 U/L (8-55); AST (SGOT) 48 U/L (5-34); Albumin 4.1 g/dL (3.5-5.0); Alkaline Phosphatase 82 U/L (40-110); Anion Gap 13 mmol/L (10-20); BUN (Urea Nitrogen) 10 mg/dL (7.0-18.7); Bilirubin, Total 0.3 mg/dL (0.2-1.2); Calc. Creatinine Clearance 0 mL/min (70-130); Calcium 9.5 mg/dL (7.8-10.44); Carbon Dioxide 23 mmol/L (22-29); Chloride 107 mmol/L (98-107); Estimated GFR-MDRD Greater than 90; Globulin 3.3 g/dL (2.4-3.5); Glucose 92 mg/dL (70-105); Lipase 14 U/L (8-78); Potassium 3.7 mmol/L (3.5-5.1); Protein, Total 7.4 g/dL (6.0-8.3); Sodium 139 mmol/L (136-145)
[2020-06-27] MEDS ORDERED: Lidocaine Viscous Sol 2% 15 ml UD Cup ONE (16:49)
[2020-06-27] MEDS ORDERED: Mag-Al 1200 mg/1200 mg/30 ML UDCUP ONE (16:49)
[2020-06-27] MEDS ORDERED: Lorazepam 2 MG/ML VIAL ONE (17:01)
== END 2020-06-27 19:17 | disposition home or self-care (01) ==
LOC: ERS 15:24
DX: K29.70 Gastritis, unspecified, without bleeding (principal)
CPT/HCPCS: 36415; 80053; 81003; 81015; 81025; 83690; 85025; 93005; J2060; Q0162

== ENCOUNTER 2021-02-19 17:02 | Emergency (ER) | payer SELFPAY ==
[2021-02-19 17:46] LABS: #Basophils 0.1 thou/uL (0.0-0.2); #Eosinphils 0.1 thou/uL (0.0-0.7); #Lymphocytes 2.7 thou/uL (1.20-3.40); #Monocytes 0.6 thou/uL (0.11-0.59); #Neutrophils 4.9 thou/uL (1.40-6.50); %Basophils 0.8 % (0.0-1.0); %Eosinophils 1.6 % (0.0-10.0); %Lymphocytes 31.7 % (21.0-51.0); %Monocytes 6.9 % (0.0-10.0); %Neutrophils 59.1 % (42.0-75.0); Hemoglobin 13.5 g/dL (12.0-16.0); Mean Corpuscular HGB CONC 33.2 g/dL (32.0-36.0); Mean Corpuscular Hemoglobin 27.7 pg (27.0-31.0); Mean Corpuscular Volume 83.3 fL (78.0-98.0); Mean Platelet Volume 6.3 fL (7.4-10.4); Platelet Count 329 thou/uL (130-400); RBC Distribution Width 11.4 % (11.5-14.5); Red Blood Cell (RBC) Count 4.88 mill/uL (4.20-5.40); White Blood Cell (WBC) Count 8.4 thou/uL (4.8-10.8)
[2021-02-19 17:47] LABS: Bilirubin Negative (Negative); Blood, Urine Negative (Negative); Clarity Clear (Clear); Glucose, Urine (Dipstick) Normal (Negative); Ketone, Urine Negative (Negative); Leukocyte Negative Leu/uL (Negative); Nitrite Negative (Negative); Protein, Urine (Dipstick) Negative (Neg-Trace); Specific Gravity, Urine 1.027 (1.002-1.036); Urobilinogen Normal mg/dL (Less than 2)
[2021-02-19 18:03] LABS: ALT (SGPT) 82 U/L (8-55); AST (SGOT) 45 U/L (5-34); Albumin 4.2 g/dL (3.5-5.0); Alkaline Phosphatase 97 U/L (40-110); Anion Gap 15 mmol/L (10-20); BUN (Urea Nitrogen) 14 mg/dL (7.0-18.7); Bilirubin, Total 0.2 mg/dL (0.2-1.2); Calc. Creatinine Clearance 0 mL/min (70-130); Calcium 9.6 mg/dL (7.8-10.44); Carbon Dioxide 22 mmol/L (22-29); Chloride 108 mmol/L (98-107); Globulin 3.6 g/dL (2.4-3.5); Glucose 96 mg/dL (70-105); Potassium 4.2 mmol/L (3.5-5.1); Protein, Total 7.8 g/dL (6.0-8.3); Sodium 141 mmol/L (136-145)
[2021-02-19 19:08] LABS: BHCG - Serum Negative (NEGATIVE); Pregs Control Background? CLEAR/WHITE (CLR/WHITE); Pregs Control Bar Appear? YES (CONTROL BAR)
== END 2021-02-19 19:11 | disposition home or self-care (01) ==
LOC: ERS 17:02
DX: R30.0 Dysuria (principal)
CPT/HCPCS: 36415; 80053; 81003; 84703; 85025; 87086; 99283

== ENCOUNTER 2021-04-06 18:51 | Emergency (ER) | payer SELFPAY ==
[2021-04-06 20:52] LABS: #Eosinphils 0.1 thou/uL (0.0-0.7); #Lymphocytes 3.1 thou/uL (1.20-3.40); #Monocytes 0.7 thou/uL (0.11-0.59); #Neutrophils 5.9 thou/uL (1.40-6.50); %Basophils 0.5 % (0.0-1.0); %Eosinophils 1.3 % (0.0-10.0); %Lymphocytes 31.6 % (21.0-51.0); %Monocytes 6.8 % (0.0-10.0); %Neutrophils 59.8 % (42.0-75.0); Hemoglobin 13.7 g/dL (12.0-16.0); Mean Corpuscular HGB CONC 34.1 g/dL (32.0-36.0); Mean Corpuscular Hemoglobin 28.9 pg (27.0-31.0); Mean Corpuscular Volume 84.9 fL (78.0-98.0); Mean Platelet Volume 6.5 fL (7.4-10.4); Platelet Count 288 thou/uL (130-400); RBC Distribution Width 11.5 % (11.5-14.5); Red Blood Cell (RBC) Count 4.75 mill/uL (4.20-5.40); White Blood Cell (WBC) Count 9.8 thou/uL (4.8-10.8)
[2021-04-06 21:13] LABS: ALT (SGPT) 72 U/L (8-55); AST (SGOT) 38 U/L (5-34); Albumin 4.3 g/dL (3.5-5.0); Alkaline Phosphatase 89 U/L (40-110); Anion Gap 11 mmol/L (10-20); BUN (Urea Nitrogen) 11 mg/dL (7.0-18.7); Bilirubin, Total 0.3 mg/dL (0.2-1.2); Calc. Creatinine Clearance 0 mL/min (70-130); Calcium 9.6 mg/dL (7.8-10.44); Carbon Dioxide 25 mmol/L (22-29); Chloride 106 mmol/L (98-107); Globulin 3.2 g/dL (2.4-3.5); Glucose 86 mg/dL (70-105); Lipase 15 U/L (8-78); Potassium 4.1 mmol/L (3.5-5.1); Protein, Total 7.5 g/dL (6.0-8.3); Sodium 138 mmol/L (136-145)
[2021-04-06 21:40] LABS: Bacteria/HPF Rare-Few HPF (None Seen); Bilirubin Negative (Negative); Blood, Urine Trace (Negative); Clarity Cloudy (Clear); Glucose, Urine (Dipstick) Normal (Negative); Ketone, Urine Negative (Negative); Leukocyte 500 Leu/uL (Negative); Nitrite Negative (Negative); Protein, Urine (Dipstick) Negative (Neg-Trace); Specific Gravity, Urine 1.023 (1.002-1.036); Urobilinogen Normal mg/dL (Less than 2); pH, Urine 5.5 (5.0-9.0)
[2021-04-06 21:41] LABS: Pregnancy Test - Urine (BHCG) Negative (Negative); Pregu Control Background? CLEAR/WHITE (CLR/WHITE); Pregu Control Bar Appear? YES (CONTROL BAR); Specific Gravity 1.023 (1.002-1.036)
[2021-04-06] MEDS ORDERED: Ketorolac Tromethamine 30 MG/ML VIAL ONE (22:05)
== END 2021-04-06 23:08 | disposition home or self-care (01) ==
LOC: ERS 18:51
DX: K29.00 Acute gastritis without bleeding (principal); K59.00 Constipation, unspecified
CPT/HCPCS: 36415; 74177; 80053; 81003; 81015; 81025; 83690; 85025; 96374; J1885; Q9967

== ENCOUNTER 2021-07-08 13:40 | Emergency (ER) | payer SELFPAY ==
[2021-07-08 14:27] LABS: #Basophils 0.1 thou/uL (0.0-0.2); #Eosinphils 0.1 thou/uL (0.0-0.7); #Lymphocytes 1.5 thou/uL (1.20-3.40); #Monocytes 0.6 thou/uL (0.11-0.59); #Neutrophils 4.8 thou/uL (1.40-6.50); %Basophils 1.5 % (0.0-1.0); %Eosinophils 1.7 % (0.0-10.0); %Lymphocytes 20.9 % (21.0-51.0); %Monocytes 8.3 % (0.0-10.0); %Neutrophils 67.7 % (42.0-75.0); Hemoglobin 13.5 g/dL (12.0-16.0); Mean Corpuscular HGB CONC 33.8 g/dL (32.0-36.0); Mean Corpuscular Volume 82.9 fL (78.0-98.0); Mean Platelet Volume 6.2 fL (7.4-10.4); Platelet Count 268 thou/uL (130-400); RBC Distribution Width 11.2 % (11.5-14.5); Red Blood Cell (RBC) Count 4.84 mill/uL (4.20-5.40); White Blood Cell (WBC) Count 7.1 thou/uL (4.8-10.8)
[2021-07-08 14:28] LABS: BHCG - Serum Negative (NEGATIVE); Pregs Control Background? CLEAR/WHITE (CLR/WHITE); Pregs Control Bar Appear? YES (CONTROL BAR)
[2021-07-08 14:49] LABS: ALT (SGPT) 64 U/L (8-55); AST (SGOT) 35 U/L (5-34); Albumin 3.9 g/dL (3.5-5.0); Alkaline Phosphatase 79 U/L (40-110); Anion Gap 11 mmol/L (10-20); BUN (Urea Nitrogen) 11 mg/dL (7.0-18.7); Bilirubin, Total 0.3 mg/dL (0.2-1.2); Calc. Creatinine Clearance 0 mL/min (70-130); Calcium 9.5 mg/dL (7.8-10.44); Carbon Dioxide 27 mmol/L (22-29); Chloride 105 mmol/L (98-107); Globulin 3.2 g/dL (2.4-3.5); Glucose 75 mg/dL (70-105); Lipase 13 U/L (8-78); Potassium 3.5 mmol/L (3.5-5.1); Protein, Total 7.1 g/dL (6.0-8.3); Sodium 139 mmol/L (136-145)
== END 2021-07-08 15:31 | disposition home or self-care (01) ==
LOC: ERS 13:40
DX: R11.2 Nausea with vomiting, unspecified (principal); R19.7 Diarrhea, unspecified; R10.11 Right upper quadrant pain; R10.12 Left upper quadrant pain
CPT/HCPCS: 36415; 80053; 83690; 84703; 85025; 99284